=== PATIENT | male | born 1955 | race Caucasian/White ===

== ENCOUNTER 2024-08-12 17:21 | Emergency (ER) | payer BC, MEDICARE ==
[2024-08-12] MEDS: Lidocaine 1% 5 ML VIAL INJECT ONE (18:30)
[2024-08-12] MEDS: Bacitracin Oint 1 GM U/D Packet TOP ONE (19:01)
[2024-08-12] MEDS: Diphtheria,Pertussis(Acell),Tetanus Vaccine 0.5 ML Syringe IM ONE (19:01)
== END 2024-08-12 19:09 | disposition home or self-care (01) ==
LOC: JP.ED 17:21
DX: S60.452A Superficial foreign body of right middle finger, initial encounter (principal); R19.8 Other specified symptoms and signs involving the digestive system and abdomen; Z23 Encounter for immunization; Z90.49 Acquired absence of other specified parts of digestive tract; W45.8XXA Other foreign body or object entering through skin, initial encounter
CPT/HCPCS: 64450; 90471; 90715; 99283; J2003